=== PATIENT | male | born 1980 | race Caucasian/White ===

== ENCOUNTER 2018-05-19 17:39 | Emergency (ER) | payer OTHER ==
[2018-05-19 17:47] VITALS: BP 123/75; PULSE 72; RESP 18; TEMP 98
[2018-05-19] MEDS ORDERED: DEXAMETHASONE SOD PHOSPHATE 10 MG/ML 1 ML VIAL IM STA (18:10)
--- NOTE | 2018-05-19 18:18 | ED ---
General Adult HPI - General Chief complaint: Dental/Oral Stated complaint: dental pain Time Seen by Provider: 05/19/18 17:49 Source: patient, RN notes reviewed Mode of arrival: ambulatory Limitations: no limitations - History of Present Illness Initial comments: Patient is a 38-year-old male presented to the emergency room today with a chief complaint of increased dental pain over the last week. Patient does admit that 2 weeks ago he was at his dentist office. States that he had a filling that they were trying to fix. He does admit that he started having some increased pain. He states he noticed some swelling to the left lower jaw over the last 2 days. He states that his girlfriend works as a nurse and was able to get him a prescription for Augmentin she started yesterday. States still having pain some swelling locally. She is also been using Toradol for pain. Patient denies any other complaints or symptoms at this time. Patient denies any recent fever, chills, shortness of breath, chest pain, back pain, abdominal pain, nausea or vomiting, numbness or tingling, headaches or visual changes, or any other complaints. - Related Data Previous Rx's Medication Instructions Recorded Clindamycin HCl 300 mg PO Q6H #40 cap 05/19/18 Allergies Allergy/AdvReac Type Severity Reaction Status Date / Time No Known Allergies Allergy Verified 05/19/18 17:47 Review of Systems ROS Statement: Those systems with pertinent positive or pertinent negative responses have been documented in the HPI. ROS Other: All systems not noted in ROS Statement are negative. Past Medical History Past Medical History: No Reported History History of Any Multi-Drug Resistant Organisms: None Reported Additional Past Surgical History / Comment(s): back surgery 2017, bilateral ankle and feet sugery Past Psychological History: No Psychological Hx Reported Smoking Status: Current every day smoker Past Alcohol Use History: Occasional Past Drug Use History: Marijuana General Exam - General Exam Comments Initial Comments: General: The patient is awake and alert, in no distress, and does not appear acutely ill. Eye: There is normal conjunctiva bilaterally. No signs of icterus. Ears, nose, mouth and throat: There are moist mucous membranes and no oral lesions. Patient does have tenderness in the gumline between tooth #19 and 20. There is no abscess to drain. Uvula midline. Patient swallows without difficulty. Neck: The neck is supple, there is no tenderness or JVD. Musculoskeletal: Normal ROM, no tenderness. Sensation intact. Strength 5/5. Pulses equal bilaterally 2+. Neurological: A&O x 3. CN II-XII intact, There are no obvious motor or sensory deficits. Coordination appears grossly intact. Speech is normal. Skin: Skin is warm and dry and no rashes or lesions are noted. Psychiatric: Cooperative, appropriate mood & affect, normal judgment. Limitations: no limitations Course Vital Signs 05/19/18 17:41 Temperature 98 F Pulse Rate 72 Respiratory 18 Rate Blood Pressure 123/75 O2 Sat by Pulse 96 Oximetry Medical Decision Making - Medical Decision Making Patient started antibiotics yesterday of Augmentin. Patient states that symptoms are not improving. Was discussed that antibiotics may have not had enough time to begin to work at this time. Patient will be covered with clindamycin for dental abscess. Patient is advised warm compresses. Advised to follow-up dentist over the next 2 days. Disposition Clinical Impression: Dental abscess Disposition: HOME SELF-CARE Instructions: Dental Abscess (ED) Additional Instructions: Please use medication as discussed. Follow dentist over the next 2 days. Please use warm/cold compresses as discussed. Please return to emergency room if the symptoms increase or worsen or for any other concerns. Prescriptions: Clindamycin HCl 300 mg PO Q6H #40 cap Is patient prescribed a controlled substance at d/c from ED?: No Referrals: None,Stated [Primary Care Provider] - 1-2 days Time of Disposition: 18:17
== END 2018-05-19 19:21 | disposition home or self-care (01) ==
LOC: EC 17:39
DX: K04.7 Periapical abscess without sinus (principal); F17.200 Nicotine dependence, unspecified, uncomplicated
CPT/HCPCS: 99282; 96372; J1100